=== PATIENT | female | born 1980 | race Caucasian/White ===

== ENCOUNTER 2017-10-09 09:53 | Emergency (ER) | payer SELFPAY ==
[~2017-10-09] VITALS: Ht 172.7 cm; Wt 79.5 kg
[~2017-10-09 09:53] MED LIST: NOCURR
[2017-10-09] MEDS ORDERED: ALBU8HFA IH (09:59)
[2017-10-09] MEDS ORDERED: HYPROMELLOSE 0.5% 15 ML OPHTHALMIC SOLUTION OD ONE (10:30)
[2017-10-09] MEDS ORDERED: ACETAMINOPHEN 325 MG TABLET PO ONE (10:30)
[2017-10-09 10:53] VITALS: BP 111/73
== END 2017-10-09 11:30 | disposition home or self-care (01) ==
LOC: EMS 09:55
DX: H11.31 Conjunctival hemorrhage, right eye (principal); J45.909 Unspecified asthma, uncomplicated; Z79.899 Other long term (current) drug therapy
CPT/HCPCS: 99283

== ENCOUNTER 2018-08-04 13:20 | Emergency (ER) | payer SELFPAY ==
[~2018-08-04] VITALS: Ht 172.7 cm; Wt 79.1 kg
[~2018-08-04 13:20] MED LIST changes: +ALBU8HFA IH; -NOCURR
[2018-08-04] MEDS ORDERED: FLUO-191 PO (13:57)
[2018-08-04] MEDS ORDERED: ALBUTEROL SULFATE 2.5 MG/0.5 ML NEB SOLUTION NEB ONE (14:30)
[2018-08-04] MEDS ORDERED: IPRATROPIUM BROMIDE 0.5 MG/2.5 ML NEB SOLUTION NEB ONE (14:30)
[2018-08-04] MEDS ORDERED: 0.9% SODIUM CHLORIDE 5 ML NEB SOLUTION NEB ONE (14:41)
[2018-08-04 15:17] VITALS: BP 133/78
== END 2018-08-04 15:32 | disposition home or self-care (01) ==
LOC: EMS 13:20
DX: J20.9 Acute bronchitis, unspecified (principal); F32.9 Major depressive disorder, single episode, unspecified
CPT/HCPCS: 94640

== ENCOUNTER 2020-08-02 13:59 | Emergency (ER) | payer MEDICAID ==
[~2020-08-02] VITALS: Ht 170.2 cm; Wt 84.1 kg
[~2020-08-02 13:59] MED LIST changes: -ALBU8HFA IH; +FLUO-191 PO
[2020-08-02 15:25] LABS: APPEARANCE,URINE CLEAR (CLEAR); BILIRUBIN,URINE NEGATIVE (NEGATIVE); GLUCOSE, URINE (UA) NEGATIVE (NEGATIVE); KETONES,URINE NEGATIVE (NEGATIVE); LEUKOCYTE ESTERASE ,URINE TRACE (NEGATIVE); NITRATE,URINE NEGATIVE (NEGATIVE); OCCULT BLOOD,URINE NEGATIVE (NEGATIVE); PH,URINE 7.5 (5.0-8.0); PROTEIN,URINE NEGATIVE (NEGATIVE); UROBILINOGEN,URINE 0.2 mg/dL (<=1.0)
[2020-08-02 15:32] LABS: BACTERIA,URINE None Seen /HPF (None Seen); RBC,URINE 0-2 /HPF (0-2); SQUAMOUS EPITHELIAL CELL,UR Few /LPF (None Seen); WBC,URINE 0-2 /HPF (0-5)
[2020-08-02 16:20] VITALS: BP 135/87
== END 2020-08-02 16:21 | disposition home or self-care (01) ==
LOC: EMS 13:59
DX: M62.838 Other muscle spasm (principal); M54.5 Low back pain; J45.909 Unspecified asthma, uncomplicated; F32.9 Major depressive disorder, single episode, unspecified
CPT/HCPCS: 81001; 99283

== ENCOUNTER 2020-09-09 05:51 | Emergency (ER) | payer MEDICAID ==
[~2020-09-09] VITALS: Ht 172.7 cm; Wt 100.0 kg
[2020-09-09] MEDS ORDERED: ALBU8HFA IH (06:13)
[2020-09-09 06:24] VITALS: BP 138/80
[2020-09-09] MEDS ORDERED: IBUPROFEN 600 MG TABLET PO ONE (06:30)
[2020-09-09] MEDS ORDERED: HYDROCODONE/ACETAMINOPHEN 5-325 MG TABLET PO ONE (07:45)
== END 2020-09-09 08:05 | disposition home or self-care (01) ==
LOC: EMS 05:53
DX: S13.9XXA Sprain of joints and ligaments of unspecified parts of neck, initial encounter (principal); S16.1XXA Strain of muscle, fascia and tendon at neck level, initial encounter; S09.90XA Unspecified injury of head, initial encounter; F32.9 Major depressive disorder, single episode, unspecified; J45.909 Unspecified asthma, uncomplicated; V49.9XXA Car occupant (driver) (passenger) injured in unspecified traffic accident, initial encounter; Y93.89 Activity, other specified; Y92.488 Other paved roadways as the place of occurrence of the external cause; Y99.8 Other external cause status
CPT/HCPCS: 70450; 72125; 99285

== ENCOUNTER 2020-12-31 14:29 | Emergency (ER) | payer MEDICAID ==
[~2020-12-31] VITALS: Ht 243.8 cm; Wt 90.9 kg
[2020-12-31 14:29] VITALS: BP 140/88
[~2020-12-31 14:29] MED LIST changes: +ALBU8HFA IH
== END 2020-12-31 14:54 | disposition home or self-care (01) ==
LOC: EMS 14:31
DX: R19.7 Diarrhea, unspecified (principal); J45.909 Unspecified asthma, uncomplicated; F32.9 Major depressive disorder, single episode, unspecified; Z20.822 Contact with and (suspected) exposure to COVID-19; Z79.899 Other long term (current) drug therapy
CPT/HCPCS: 99283; U0003

== ENCOUNTER 2022-06-23 10:42 | Emergency (ER) | payer MEDICAID ==
[~2022-06-23] VITALS: Ht 175.3 cm; Wt 90.9 kg
[~2022-06-23 10:42] MED LIST changes: +ALBU18HF12 IH; -ALBU8HFA IH; +FLUO-177 PO; -FLUO-191 PO
[2022-06-23] MEDS ORDERED: ESCI-8 PO (10:45)
[2022-06-23] MEDS ORDERED: ACETAMINOPHEN 500 MG TABLET PO ONE (12:30)
[2022-06-23 12:42] LABS: COVID AG,FIA SOURCE NASAL SWAB
[2022-06-23] MEDS ORDERED: ALBUTEROL SULFATE HFA 90 MCG/PUFF 8 GM INHALER IH ONE (13:00)
[2022-06-23 13:03] LABS: INFLUENZA TYPE A NEGATIVE FOR TYPE A (NEGATIVE); INFLUENZA TYPE B NEGATIVE FOR TYPE B (NEGATIVE)
[2022-06-23] MEDS ORDERED: ERYT3.5O8 OS (15:41)
[2022-06-23 16:00] VITALS: BP 137/79
== END 2022-06-23 16:02 | disposition home or self-care (01) ==
LOC: EMS 10:54
DX: H10.32 Unspecified acute conjunctivitis, left eye (principal); J45.909 Unspecified asthma, uncomplicated; F32.A Depression, unspecified; G43.909 Migraine, unspecified, not intractable, without status migrainosus; F17.210 Nicotine dependence, cigarettes, uncomplicated; Z20.822 Contact with and (suspected) exposure to COVID-19
CPT/HCPCS: 99285; 87426; 87430; 87804; 94640; J3535

== ENCOUNTER 2023-01-24 15:24 | Emergency (ER) | payer MEDICAID ==
[~2023-01-24] VITALS: Ht 170.2 cm; Wt 91.0 kg
[~2023-01-24 15:24] MED LIST changes: +ERYT3.5O8 OS; +ESCI-8 PO; -FLUO-177 PO
[2023-01-24 17:36] LABS: BASOPHILS % (AUTO) 0.5 % (0.0-2.0); EOSINOPHILS % (AUTO) 0.6 % (1.0-6.0); HEMATOCRIT 35.9 % (36-46); HEMOGLOBIN 11.7 g/dL (12.0-16.0); LYMPHOCYTES % (AUTO) 19.6 % (22.0-44.0); MEAN CORPUSCULAR HEMOGLOBIN 27.5 pg (26.0-34.0); MEAN CORPUSCULAR HGB CONC 32.5 G/dL (31.0-37.0); MEAN CORPUSCULAR VOLUME 85 fL (80-100); MONOCYTES # (AUTO) 0.5 K/uL (0.1-1.0); MONOCYTES % (AUTO) 5.2 % (2.0-9.0); NEUTROPHILS # (AUTO) 7.4 K/uL (1.8-7.7); NEUTROPHILS % (AUTO) 74.1 % (40.0-70.0); PLATELET COUNT (AUTO) 349 K/uL (150-450); RED BLOOD CELL COUNT(AUTO) 4.24 MIL/uL (4.00-5.20); RED CELL DISTRIBUTION WIDTH 16.7 % (11.5-14.5)
[2023-01-24 17:44] LABS: ANION GAP 7 mmol/L (8-16); CALCIUM, TOTAL 9.3 mg/dL (8.8-10.5); CARBON DIOXIDE 28 mmol/L (22-29); CHLORIDE 103 mmol/L (98-107); CREATININE 0.95 mg/dL (0.60-1.30); GLOMERULAR FILTR. RATE CALC > 60 mL/min (>60); GLUCOSE,RANDOM 88 mg/dL (70-110); POTASSIUM 3.6 mmol/L (3.5-5.1); SODIUM SERUM 138 mmol/L (136-145); UREA NITROGEN, BLOOD 11 mg/dL (7-18)
[2023-01-24 17:50] LABS: ALANINE AMINOTRANSFERASE 21 U/L (12-78); ALBUMIN 3.5 g/dL (3.4-5.0); ALKALINE PHOSPHATASE 54 U/L (46-116); ASPARTATE AMINOTRANSFERASE 11 U/L (15-37); BILIRUBIN,TOTAL 0.3 mg/dL (0.1-1.0); LIPASE 23 U/L (16-77); TOTAL PROTEIN, SERUM 7.4 g/dL (6.4-8.2)
[2023-01-24 17:52] LABS: TROPONIN I-HIGH SENSITIVITY 5 ng/L (<51)
[2023-01-24 17:53] LABS: LACTIC ACID 0.5 mmol/L (0.4-2.0)
[2023-01-24] MEDS ORDERED: ACET-66 PO ×2 (18:24→18:54)
[2023-01-24] MEDS ORDERED: ONDA-104 PO ×2 (18:24→18:54)
[2023-01-24] MEDS ORDERED: MECL-134 PO ×2 (18:24→18:54)
[2023-01-24] MEDS ORDERED: MECLIZINE HCL 25 MG TABLET PO ONE (18:30)
[2023-01-24] MEDS ORDERED: ONDANSETRON HCL 4 MG TABLET PO ONE (18:30)
[2023-01-24] MEDS ORDERED: ACETAMINOPHEN 500 MG TABLET PO ONE (18:30)
[2023-01-24 19:14] VITALS: BP 119/69; PULSE 64; RESP 18; TEMP 97.7
== END 2023-01-24 19:36 | disposition home or self-care (01) ==
LOC: EMS 15:26
DX: R42 Dizziness and giddiness (principal); J45.909 Unspecified asthma, uncomplicated; F32.A Depression, unspecified; G43.909 Migraine, unspecified, not intractable, without status migrainosus; F17.210 Nicotine dependence, cigarettes, uncomplicated
CPT/HCPCS: 99284; 80053; 83605; 83690; 84484; 85025; 36415; 93005; Q0162